=== PATIENT | female | born 1985 | race Caucasian/White ===

== ENCOUNTER 2024-07-14 21:36 | Emergency (ER) | payer BC, SELFPAY ==
[2024-07-14 21:38] VITALS: BP 123/84; PULSE 76; RESP 16; TEMP 35.8; O2SAT 99
[2024-07-14 21:42] VITALS: BP 123/84; PULSE 76; RESP 16; TEMP 35.8; O2SAT 99
--- NOTE | 2024-07-14 22:00 | DI.CT_ITS ---
Exam(s) CT HEAD W EXAM: CT HEAD W CLINICAL HISTORY: headache, hx of DVT, consider sinus venous thromb. TECHNIQUE: Imaging Protocol: Axial computed tomography images with coronal and sagittal reformatted images were created and reviewed. CONTRAST MATERIAL: Intravenous: Omnipaque 350 contrast volume:100 mL COMPARISON: No exams were available for comparison FINDINGS: Ventricles and Extra axial spaces: Normal in size and morphology for the patient's age. Hemorrhage: None. Cerebral parenchyma: There is a normal ferrer-white matter differentiation. No acute territorial infar ct is seen. Enhancement: No suspicious enhancement. [place]: Unremarkable. Midline shift: None. Brainstem/Cerebellum: Normal. Calvarium: Normal. Visualized Paranasal sinuses/Mastoids: Clear. IMPRESSION: No acute intracranial process. RADIATION DOSE DELIVERED: 1,734.94mGy.cm Total DLP DATA REPOSITORY: All CT scans at this facility are submitted to the National Radiology Data Registry (NRDR) Dose Index Registry (DIR) with the [employer] ([employer]). RADIATION OPTIMIZATION: All CT scans at this facility use at least one of these dose optimization te chniques: automated exposure control; mA and/or kV adjustment per patient size (includes targeted exa ms where dose is matched to clinical indication); or iterative reconstruction.
--- NOTE | 2024-07-14 22:32 | ED.GENADUL_ITS ---
Discharge Plan Discharge Details Chief Complaint: Headache Primary Care Provider: Amelia Chapman ED Provider: Jamel Priest Home Meds and New Rx's Prescriptions: No Action tretinoin 0.025 % cream 1 applic TOPICAL DAILY Patient Comments: APPLY A PEA SIZED AMOUNT TO FACE, CHEST, AND/OR BACK AT BEDTIME spironolactone 100 mg tablet 100 mg PO DAILY Patient Comments: TAKE ONE TABLET BY MOUTH EVERY DAY escitalopram oxalate 20 mg tablet 20 mg PO DAILY Patient Comments: TAKE ONE TABLET BY MOUTH EVERY DAY Slynd 4 mg (28) tablet 1 tab PO DAILY Patient Comments: TAKE ONE TABLET BY MOUTH EVERY DAY. SKIP THE FOUR PLACEBOES DAYS. TAKE ACTIVE TABLETS CONTINUOUSLY HPI General Date/Time Provider Initiated Documentation: 07/14/24 21:40 . HPI Narrative: 39-year-old female presents with headache since last night left-sided temporal worse in the evening had multiple episodes of vomiting this evening at 8:30 PM. Denies history of headaches denies photophobia or phonophobia. Denies chest pain abdominal pain trouble breathing or other systemic signs of illness. Denies neck pain Related Data Home Medications ?Medication ?Instructions ?Recorded ?Confirmed drospirenone (contraceptive) 4 mg 1 tab PO DAILY 07/14/24 07/14/24 (28) tablet (Slynd) escitalopram oxalate 20 mg tablet 20 mg PO DAILY 07/14/24 07/14/24 spironolactone 100 mg tablet 100 mg PO DAILY 07/14/24 07/14/24 tretinoin 0.025 % topical cream 1 applic topical DAILY 07/14/24 07/14/24 Allergies Allergy/AdvReac Type Severity Reaction Status Date / Time No Known Allergies Allergy Verified 07/14/24 21:45 General Stated Complaint: Headache ELLIE: 4 Exam Narrative Exam Narrative: Alert interactive Pupils round reactive equal to light extraocular motion intact No rhinorrhea no otorrhea Moist mucous membranes tolerating secretions normal voice no stridor Supple neck full range of motion nonmeningeal Normal heart sounds no murmurs rubs or gallops Lungs clear bilaterally no wheezes rales or rhonchi Abdomen soft nontender nondistended Cranial nerves II through XII intact 5-5 strength upper and lower extremities bilaterally sensation intact equally bilaterally, normal speech no ataxia No peripheral edema No skin rash appreciated Calm cooperative normal affect/mood Course Vital Signs Vital signs: Vital Signs Temperature 35.8 C L 07/14/24 21:38 Pulse 76 07/14/24 21:38 Respiratory Rate 16 07/14/24 21:38 Blood Pressure 123/84 07/14/24 21:38 Pulse Oximetry 99 07/14/24 21:38 Temperature 35.8 C L 07/14/24 21:42 Temperature Source Temporal Artery Scan 07/14/24 21:42 Pulse 76 07/14/24 21:42 Respiratory Rate 16 07/14/24 21:42 Respiratory Effort Normal, Non-Labored 07/14/24 21:42 Blood Pressure 123/84 07/14/24 21:42 Blood Pressure Position Sitting 07/14/24 21:42 Pulse Oximetry 99 07/14/24 21:42 Oxygen Delivery Method Room Air 07/14/24 21:42 Oxygen Flow Rate 0 07/14/24 21:38 Pain Level 7 07/14/24 21:42 Medical Decision Making 39-year-old female presents with headache over the last day left temporal region associated with several episodes of vomiting at home, no chest or abdominal discomfort. No shortness of breath. Patient is afebrile nonmeningeal with nonfocal neurologic examination. Of note patient's child has viral syndrome at home. 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 No photophobia no phonophobia. Consider headache in the setting of viral illness versus must consider sinus venous thrombosis given history of thrombophilia lower suspicion for meningitis or intracranial abscess given afebrile status nonfocal neurologic exam nonmeningeal examination most also consider migraine versus tension type headache lower suspicion for ocular migraine given examination muscles consider trigeminal neuralgia. No external signs of trauma no signs of intoxication. Will obtain basic labs CT head with contrast, trial of analgesia antiemetics fluids rest close reassessment 23: 43 patient feeling much better after fluids and acetaminophen as well as Zofran. Patient remains neurologically intact nonmeningeal. Awaiting results of CT head for disposition. Quality:SDOH Health Related Social Needs: No Data to Display PFSH Social History Smoking/Tobacco Use Status: Never Smoking risk assessment performed?: Yes Alcohol Intake: current Alcohol Intake frequency: a few times a week Alcohol type: wine Drug use: Never Substance use type: does not use Housing: condominium Do you feel safe at home: Yes Do you feel safe in your relationship?: Yes
[2024-07-14 22:35] LABS: Abs Immature Grans 0.02 10^3/uL (0.0-0.06); Absolute Basophil Count 0.05 10^3/uL (0.0-0.2); Absolute Eosinophil Count 0.12 10^3/uL (0.0-0.7); Absolute Lymphocyte Count 2.28 10^3/uL (1.2-3.4); Absolute Monocyte Count 0.56 10^3/uL (0.1-0.8); Absolute Neutrophil Count 4.75 10^3/uL (1.2-6.7); Basophils % 0.6 %; Eosinophils % 1.5 %; HCT 42.6 % (36.0-46.0); HGB 14.9 g/dL (11.2-15.7); Immature Grans % 0.3 %; Lymphocytes % 29.3 %; MCH 32.2 pg (27.0-33.0); MCV 92 fL (80-95); MPV 7.9 fL (8.0-11.0); Monocytes % 7.2 %; Neutrophils % 61.1 %; Platelet Count 226 10^3/uL (130-400); RBC 4.63 10^6/uL (3.93-5.22); RDW 12.1 % (11.7-14.6); RDW-SD 41.2 fL; WBC 7.78 10^3/uL (4.4-10.8)
[2024-07-14] MEDS: ACETAMINOPHEN 1,000 MG/100 ML BAG 400 MG IVPB (22:37)
[2024-07-14] MEDS: Normal Saline 1,000 ML 1000 ML IV (22:37)
[2024-07-14] MEDS: Ondansetron 4 MG/2 ML VIAL IVP (22:37)
[2024-07-14 22:49] LABS: PTT Activated 22.6 sec (23.6-32.8); Prothrombin Time 10.1 sec (9.1-11.1)
[2024-07-14 22:51] LABS: ALT 28 U/L (14-59); AST 20 U/L (15-37); Albumin 3.2 g/dL (3.4-5.0); Alkaline Phosphatase 36 U/L (46-116); Anion Gap 8.4 mmol/L (3-11); BUN 11 mg/dL (7-18); CO2 29.6 mmol/L (21.0-32.0); CREATININE 0.7 mg/dL (0.55-1.02); Calcium 8.8 mg/dL (8.5-10.1); Chloride 105 mmol/L (98-107); Estimated GFR 113.46 (mL/min/1.73m2); Glucose 137 mg/dL (74-106); Potassium 3.7 mmol/L (3.5-5.1); Sodium 143 mmol/L (136-145); Total Protein 6.8 g/dL (6.4-8.2)
[2024-07-14 23:09] LABS: HCG Qual (Serum) Negative
[2024-07-14] MEDS: Omnipaque 350 MG/ML 100 ML BTL IJ (23:10)
[2024-07-14] MEDS: Normal Saline - Diluent 50 ML VIAL IJ (23:10)
[2024-07-14] MEDS: Normal Saline Flush 10 ML SYR IVP (23:11)
--- NOTE | 2024-07-15 00:47 | ED.PROG_ITS ---
Date of service: 07/14/24 Time of Service: 23:45 Medical Decision Making This patient was signed out to me. Please see previous notes for H&P and initial eval. In brief, 39yo F presenting with headache with associated vomiting. Hx DVT; concern for possible CVST. Normal neurologic exam. Headache much improved after medication and patient requesting discharge home. [facility] with delay today, 2-3 hours for reads. Signed out pending CT read; if negative would discharge home. CT head: IMPRESSION: No acute intracranial abnormality seen On reassessment she is well appearing with reassuring vital signs, normal neurologic exam, symptomatically improved. Discharged home; discharge in structions and return precautions were reviewed with patient who verbalized understanding. All questions were answered and she is in full agreement with the plan. Quality:[facility] Health Related Social Needs: No Data to Display Sign Out Sign Out Data: Sign Out Comment: pending CT head, initial concern for possible sinus venous thrombosis; greatly improved headache symptoms, non meningeal; if negative CT, home with followup primary v neuro as needed Last updated by Jamel Priest MD at 07/14/24 23:51 Discharge Plan Disposition Patient Disposition: Home Condition: Good Discharge Details Clinical Impression: Headache Primary Care Provider: Amelia Chapman ED Provider: Katie Rankin Home Meds and New Rx's Prescriptions: Continued tretinoin 0.025 % cream 1 applic TOPICAL DAILY Patient Comments: APPLY A PEA SIZED AMOUNT TO FACE, CHEST, AND/OR BACK AT BEDTIME spironolactone 100 mg tablet 100 mg PO DAILY Patient Comments: TAKE ONE TABLET BY MOUTH EVERY DAY escitalopram oxalate 20 mg tablet 20 mg PO DAILY Patient Comments: TAKE ONE TABLET BY MOUTH EVERY DAY Slynd 4 mg (28) tablet 1 tab PO DAILY Patient Comments: TAKE ONE TABLET BY MOUTH EVERY DAY. SKIP THE FOUR PLACEBOES DAYS. TAKE ACTIVE TABLETS CONTINUOUSLY Discharge Instructions Instructions: Headache, Adult ED Additional Instructions: Tyelnol and ibuprofen at home over the counter for pain; follow the directions on the bottle. Call your primary care doctor today to schedule an appointment for within the next 3 days to follow up on your visit here. Return to the emergency department for new or worsening symptoms including new/different/worse headache, if you begin vomiting again, have numbness or weakness, fever, vertigo, or if you have any other concerns. Referrals: Amelia Chapman MD [Primary Care Provider] -
--- NOTE | 2024-07-15 01:20 | DI.[facility]AD_ITS ---
PROCEDURE INFORMATION: Exam: CT Head With Contrast Exam date and time: 07/14/2024 11:07 PM Age: 39 years old Clinical indication: Pain; Migraine; Aura effect not specified; Other: Unknown; Patient HX: Headache, HX of dvt, consider sinus venous thromb TECHNIQUE: Imaging protocol: Computed tomography of the head with intravenous contrast. 3D rendering (Not supervised by radiologist): MIP and/or 3D reconstructed images were created by the technologist. Radiation optimization: All CT scans at this facility use at least one of these dose optimization techniques: automated exposure control; mA and/or kV adjustment per patient size (includes targeted exams where dose is matched to clinical indication); or iterative reconstruction. Contrast material: OMNIPAQUE 350; Contrast volume: 100 ml; Contrast route: INTRAVENOUS (IV); COMPARISON: No relevant prior studies available. FINDINGS: Brain: No acute intracranial hemorrhage, mass-effect, midline shift, or extra-axial collection is seen. The ferrer white matter differentiation appears preserved. Cerebral ventricles: The ventricular system and basilar cisterns appear appropriate in size and configuration. Bones/joints: The bony calvarium appears intact. No depressed skull fracture is seen. Paranasal sinuses: The visualized paranasal sinuses appear well-aerated. Mastoid air cells: The mastoid air cells appear well-aerated. Auditory system: The middle ear cavities appear clear. Soft tissues: No gross focal scalp hematoma is seen. IMPRESSION: No acute intracranial abnormality seen. Dictated and Authenticated by: Aleksandr Ibarra MD. Ordering:ANSLEY Mccullough MD
[2024-07-15 01:32] VITALS: BP 105/67; PULSE 72; RESP 18; TEMP 36.7; O2SAT 98
[2024-07-15 01:37] VITALS: BP 105/67; PULSE 72; RESP 18; TEMP 36.7; O2SAT 98
== END 2024-07-15 01:37 | disposition home or self-care (01) ==
LOC: ER 07-15 01:57
PROVIDERS: Emergency Medicine; Emergency Provider Student in an Organized Health Care Education/Training Program; PCP Nurse Practitioner Family
DX: R51.9 Headache, unspecified (principal)
CPT/HCPCS: 00123; 36415; 80053; 96361; 96365; 96375; 99285; 70460; 84703; 85025; 85610; 85730; 99284; J0131; J2405; J3490